=== PATIENT | female | born 2000 | race Two or more races ===

== ENCOUNTER 2022-07-04 17:24 | Emergency (ER) | payer OTHER ==
[~2022-07-04] VITALS: Ht 154.9 cm; Wt 76.3 kg
[2022-07-04] MEDS ORDERED: PENICILLIN G BENZ 1200000 UNITS/2 ML SYRG IM ONE (17:45)
[2022-07-04] MEDS ORDERED: IBUP800T26 PO (19:01)
[2022-07-04 22:34] VITALS: BP 126/64
== END 2022-07-04 22:38 | disposition home or self-care (01) ==
LOC: ER 17:24
DX: J02.0 Streptococcal pharyngitis (principal); E66.01 Morbid (severe) obesity due to excess calories; Z68.31 Body mass index [BMI] 31.0-31.9, adult
CPT/HCPCS: 87880; 96372; 99283; J0561